=== PATIENT | female | born 1985 | race Caucasian/White ===

== ENCOUNTER 2017-08-09 14:29 | Emergency (ER) | payer BC ==
[2017-08-09 16:02] VITALS: BP 101/70
--- NOTE | 2017-08-09 16:16 | UC ---
Complaint Female HPI - HPI Summary HPI Summary: Pt presents with urinary pressure and frequency for 5 days. She is currently on her period. Has had a UTI in the past and this feels the same. Denies fever, chills, abdominal pain, n/v/d/c, flank pain, vaginal discharge or pain. - History Of Current Complaint Chief Complaint: UCGU Stated Complaint: FREQUENT URINATION Time Seen by Provider: 08/09/17 16:16 Hx Obtained From: Patient Hx Last Menstrual Period: now Onset/Duration: Gradual Onset Timing: Constant Severity Initially: Mild Severity Currently: Mild Pain Intensity: 1 Pain Scale Used: 0-10 Numeric - Allergies/Home Medications Allergies/Adverse Reactions: Allergies Allergy/AdvReac Type Severity Reaction Status Date / Time No Known Allergies Allergy Verified 08/09/17 16:02 Home Medications: Home Medications Ibuprofen 200 mg PO 08/09/17 [History] PMH/Surg Hx/FS Hx/Imm Hx Previously Healthy: Yes - Surgical History Surgical History: None - Family History Known Family History: Positive: None - Social History Occupation: Employed Full-time Lives: With Family Alcohol Use: Occasionally Substance Use Type: Marijuana Smoking Status (MU): Smoker, Current Status Unknown Review of Systems Constitutional: Negative Skin: Negative Cardiovascular: Negative Gastrointestinal: Negative Genitourinary: Frequency, Urgency Musculoskeletal: Negative Neurological: Negative Psychological: Negative All Other Systems Reviewed And Are Negative: Yes Physical Exam Triage Information Reviewed: Yes Appearance: Well-Appearing, No Pain Distress, Well-Nourished Vital Signs: Initial Vital Signs Temp 98.7 F 08/09/17 15:56 Pulse 58 08/09/17 15:56 Resp 16 08/09/17 15:56 BP 101/70 08/09/17 15:56 Pulse Ox 100 08/09/17 15:56 Vital Signs Reviewed: Yes Neck: Positive: Supple, Nontender, No Lymphadenopathy Respiratory: Positive: Lungs clear, Normal breath sounds, No respiratory distress, No accessory muscle use Cardiovascular: Positive: RRR, No Murmur, Pulses Normal Abdomen Description: Positive: Nontender, No Organomegaly, Soft. Negative: CVA Tenderness (R), CVA Tenderness (L), Distended, Guarding Bowel Sounds: Positive: Present Neurological: Positive: Alert Psychological: Positive: Age Appropriate Behavior Skin: Negative: rashes Complaint Female Dx - Course Course Of Treatment: U/A with 3+ blood and 3+ leuks. Will send for culture and treat with Bactrim for 5 days - Differential Dx/Diagnosis Provider Diagnoses: UTI Discharge - Discharge Plan Condition: Stable Disposition: HOME Prescriptions: Sulfamethox/Trimethoprim DS* [Bactrim DS 800/160 TAB*] 1 tab PO BID #10 tab Patient Education Materials: Urinary Tract Infection in Women (DC) Referrals: No Primary Care Phys,NOPCP [Primary Care Provider] - Additional Instructions: If you develop a fever, shortness of breath, chest pain, new or worsening symptoms - please call your PCP or go to the ED.
--- NOTE | 2017-08-11 07:11 | UC ---
- Progress Note Progress Note: Treated with bactrim for urinary tract infection, but culture was negative. Menstruating at time of sample, hence had blood in urine. Should know that culture was negative, and follow up if symptoms are persisting.
== END 2017-08-09 16:23 | disposition home or self-care (01) ==
LOC: UCEAST 14:29
DX: N39.0 Urinary tract infection, site not specified (principal); Z87.440 Personal history of urinary (tract) infections; Z72.0 Tobacco use
CPT/HCPCS: 81003; 87086; 99212; G0463